=== PATIENT | male | born 1950 | race Caucasian/White ===

== ENCOUNTER 2016-11-30 08:59 | Day surgery (SDC) | payer OTHER ==
[~2016-11-30] VITALS: Ht 162.6 cm; Wt 60.3 kg
[2016-11-30] VITALS (7 sets, daily range): BP systolic 114–134; BP diastolic 62–81; PULSE 77–81; RESP 14–25; Ht 162.6 cm; Wt 60.3 kg
[2016-11-30] MEDS ORDERED: [UNRECOGNIZED DRUG - OTHER] PO (16:08)
[2016-11-30] MEDS ORDERED: PROPOFOL 20 ML ONE ×2 (16:40→17:10)
--- NOTE | 2016-11-30 17:08 | OPPN ---
Date/Time of Note Date/Time of Note DATE: 11/30/16 TIME: 17:05 Proc Note GI Procedure Date 11/30/16 Indication: other (Surveillance esophageal varices) Pre-procedure Diagnosis Surveillance esophageal varices Post-procedure Diagnosis Impression: Grade I/IV esophageal varices. No treatment required. Probable portal gastropathy. Rule out H. pylori infection. Biopsies obtained Plan: Continue present regimen Review pathology Surveillance EGD in 6 months . Procedure Performed: Endoscopy (With biopsies) Surgeon CELESTINE CHANDLER MD See signature line Special Education Instructor none Anesthesia Type: MAC Anesthesiologist: SILVINA JONES MD Tourniquet Time none EBL none Transfusion required none Biopsy 1: Gastric antrum/rule out H. pylori infection Grafts/Implants none Tubes/Drains none Complication(s) none Procedure Description Preoperative Diagnosis: After informed consent, with the patient/relatives understanding the procedure, its indications, potential risks and complications, including but not limited to : allergic reaction, bleeding, perforation or infection, and after all pertinent questions were answered to the patients satisfaction, the patient/ relatives signed witnessed informed consent. Following this, premedication was administered slowly IV push under careful cardiovascular and respiratory monitoring with pulse oximetry, automatic blood pressure, and shotweld operator. Once the sedative effect was achieved the patient was place in the left lateral decubitus, the panendoscope was introduced and advanced under visual control. Careful examination of the upper gastrointestinal tract, both on insertion as well as withdrawal of the instrument disclosing the following findings: ESOPHAGUS: the mucosa of the entire esophagus was carefully examined and showed the following findings: There are grade I/IV esophageal varices requiring no treatment. Otherwise the mucosa appears within normal limits. There is no evidence of esophagitis, neoplasm, or stricture. No Hiatal Hernia identified. STOMACH: Upon entrance to the stomach air was insufflated, the gastric lynne distended normally. The mucosa of the fundus, body and antrum of the stomach was carefully examined both head-on and on retroflexion, and showed the following findings: There is erythema, edema and congestion of the mucosa of the entire stomach. Findings are consistent with portal hypertensive gastropathy. Biopsies were obtained to rule out H. pylori infection. Otherwise the mucosa appears within normal limits with no abnormalities. There is no evidence of ulcers or neoplasm. PYLORUS: The pylorus was carefully examined and showed the following findings: the pylorus appears patent and within normal limits, with no evidence of gastric outlet obstruction. DUODENUM: The duodenal mucosa was carefully examined in the duodenal bulb as well as the second portion of the duodenum and showed the following findings: the mucosa appears unremarkable with no evidence of duodenitis, ulcer or neoplasm. Copies To: CC: CELESTINE CHANDLER MD, MORDO MD Nov 30, 2016 17:08
== END 2016-11-30 17:28 | disposition home or self-care (01) ==
LOC: GIL 08:59
PROVIDERS: ATTEND Internal Medicine Gastroenterology
DX: K29.50 Unspecified chronic gastritis without bleeding (principal)
CPT/HCPCS: 36430; 43235; 86850; 86900; 86901; 88305; 88312; P9035; Z7610

== ENCOUNTER 2017-01-15 13:49 | Day surgery (SDC) | payer OTHER ==
[~2017-01-15] VITALS: Ht 165.1 cm; Wt 59.7 kg
[~2017-01-15 13:49] MED LIST: [UNRECOGNIZED DRUG - OTHER] PO
[2017-01-15] MEDS ORDERED: XIFAXAN (14:31)
[2017-01-15] MEDS ORDERED: TYLENOL (14:31)
[2017-01-15 14:32] VITALS: Ht 165.1 cm; Wt 59.7 kg
[2017-01-15 15:04] VITALS: BP 129/72; PULSE 80; RESP 18
[2017-01-15] MEDS ORDERED: MIDAZOLAM 1 MG/ML 2 ML INJ ONE (15:41)
[2017-01-15] MEDS ORDERED: PROPOFOL 20 ML ONE (15:41)
[2017-01-15] MEDS ORDERED: LIDOCAINE 2% (SDV) 5 ML INJ ONE (15:41)
--- NOTE | 2017-01-15 16:11 | OPPN ---
Date/Time of Note Date/Time of Note DATE: 01/15/17 TIME: 16:03 Proc Note GI Procedure Date 01/15/17 Indication: other (CRC screening) Pre-procedure Diagnosis CRC screening Post-procedure Diagnosis Impression: Moderate-sized internal hemorrhoids Otherwise normal colonoscopy to cecum. Plan: Follow up as scheduled] High fiber diet Annual hemoccult stool testing [Screening colonoscopy in 10 years] . Procedure Performed: Colonoscopy Surgeon CELESTINE CHANDLER MD See signature line Multiplex Operator none Anesthesia Type: MAC Anesthesiologist: MARCIA PIERRE DO Tourniquet Time none EBL none Transfusion required none Biopsy 1: None Grafts/Implants none Tubes/Drains none Complication(s) none Disposition: home Procedure Description After informed consent, with the patient/relatives understanding the procedure, its indications and potential risks and complications, including but not limited to: Allergic reaction, bleeding, perforation, infection, and after all pertinent questions were answered to the patient's satisfaction, the patient/ relatives signed the witnessed informed consent. Following this, premedication was administered slowly IV push under careful cardiovascular and respiratory monitoring with pulse OXIMETRY, automatic blood pressure, and panel monitor. Once the sedative effect was achieved, the patient was placed in the left lateral decubitus position, digital rectal examination was performed. The colonoscope was then introduced and advanced under visual control throughout all segments of the colon including: the rectum, sigmoid, descending colon, splenic flexure, transverse colon, hepatic flexure, ascending colon and finally reaching the cecum which was clearly identified by transillumination, finger indentation and the ileocecal valve. Careful examination of the mucosa of the lower gastrointestinal tract both on insertion as well as withdrawal of the instrument disclosed the following findings: PREPARATION QUALITY: [Adequate], RECTAL EXAM: The anorectal area was visualized examined and digital rectal examination performed with the following findings: No evidence of perirectal disease, no masses. COLONIC MUCOSA: The mucosa of all segments of the colon was carefully examined and showed the following findings: the examined mucosa appears within normal limits. There is no evidence of inflammatory changes, diverticular formation, polyps or neoplasms, vascular malformation, or any other abnormality. Moderate-sized internal hemorrhoids The instrument was then withdrawn, the patient tolerated the procedure well and was transferred out of the Endoscopy Suite awake and in good condition to continue recovery under observation. Copies To: CC: CELESTINE CHANDLER MD, MORDO MD Jan 15, 2017 16:11
[2017-01-15 16:30] VITALS: BP 160/84; PULSE 84; RESP 24
== END 2017-01-15 17:44 | disposition home or self-care (01) ==
LOC: GIL 13:49
PROVIDERS: ATTEND Internal Medicine Gastroenterology
DX: Z12.11 Encounter for screening for malignant neoplasm of colon (principal); K64.8 Other hemorrhoids
CPT/HCPCS: 45378; J2250; Z7610

== ENCOUNTER 2018-07-13 14:35 | Day surgery (SDC) | payer MEDICARE, OTHER ==
[~2018-07-13] VITALS: Ht 162.6 cm; Wt 56.6 kg
[~2018-07-13 14:35] MED LIST changes: +TYLENOL; +XIFAXAN; -[UNRECOGNIZED DRUG - OTHER] PO
[2018-07-13 15:38] VITALS: Ht 162.6 cm; Wt 56.6 kg
[2018-07-13 16:36] VITALS: BP 167/74; PULSE 97; RESP 20
--- NOTE | 2018-07-13 17:07 | PREAC ---
Date/Time of Note Date/Time of Note DATE: 07/13/18 TIME: 17:05 Anesthesia Eval and Record Evaluation Time Pre-Procedure Interview DATE: 07/13/18 TIME: 17:05 Age 68 Sex male NPO: 8 hrs Preoperative diagnosis HX OF ESOPHAGEAL VARICES Planned procedure EGD Past Medical History Past Medical History: Includes Cardio: HTN Hepatic: Alcohol abuse, Cirrhosis Surgery & Anesthesia Issues No known issue Meds Anticoagulation: No Beta Lashonda within 24 hr: No Reason Beta Lashonda not given: Pt. not on B-Lashonda Reported Medications [Tylenol ] No Conflict Check 01/15/17 [Xifaxan] No Conflict Check 01/15/17 Meds reviewed: Yes Allergies Coded Allergies: No Known Allergy (Unverified , 07/13/18) Allergies Reviewed: Yes Labs/Studies Labs Reviewed: Reviewed by anesthesiologist test: N/A Pre-procedure Exam Last vitals Vital Signs Date Temp Pulse Resp B/P (MAP) Pulse Ox O2 O2 Flow FiO2 Time Delivery Rate 07/13/18 98.1 97 20 167/74 98 Room Air 16:36 (105) Airway: Adequate mouth opening, Adequate thyromental dist Mallampati: Mallampati II Teeth: Normal Lung: Normal Heart: Normal ASA Physical Status ASA physical status: 4 Emergency: None Planned Anesthetic General/MAC: MAC Planned Pain Management Parenteral pain med Pre-operative Attestations Prior to commencing anesthesia and surgery, the patient was re-evaluated, there was verification of: *The patient's identity *The results of appropriate recent lab work and preoperative vital signs *The above evaluation not changing prior to induction *Anesthetic plan, risk benefits, alternative and complications discussed with patient/family; questions answered; patient/family understands, accepts and wishes to proceed. Nilesh Betancourt M.D. Jul 13, 2018 17:07
[2018-07-13] MEDS ORDERED: PROPOFOL 40 ML ONE (17:19)
[2018-07-13] MEDS ORDERED: LIDOCAINE 100 MG SYRINGE ONE (17:19)
[2018-07-13] MEDS ORDERED: FENTAnyl 50 MCG/ML VIAL ONE (17:19)
--- NOTE | 2018-07-13 17:28 | PAC ---
Date/Time of Note Date/Time of Note DATE: 07/13/18 TIME: 17:28 Post-Anesthesia Notes Post-Anesthesia Note Last documented vital signs Vital Signs Date Temp Pulse Resp B/P (MAP) Pulse Ox O2 O2 Flow FiO2 Time Delivery Rate 07/13/18 98.1 97 20 167/74 98 Room Air 16:36 (105) Activity: WNL Respiratory function: WNL Cardiovascular function: WNL Mental status: Baseline Pain reasonably controlled: Yes Hydration appropriate: Yes Nausea/Vomiting absent: Yes Nilesh Betancourt M.D. Jul 13, 2018 17:28
== END 2018-07-13 17:50 | disposition home or self-care (01) ==
LOC: GIL 14:35
PROVIDERS: ATTEND Internal Medicine Gastroenterology
DX: K29.50 Unspecified chronic gastritis without bleeding (principal)
CPT/HCPCS: 43239; 88305; 88312; J2001; J3010